=== PATIENT | male | born 1945 | race Caucasian/White ===

== ENCOUNTER → 2019-01-19 | Outpatient (CLI) | payer MEDICARE | END | disposition home or self-care (01) | LOC: LABWHC1 13:01 | PROVIDERS: ATTEND Internal Medicine | DX: M25.50 Pain in unspecified joint (principal) | CPT/HCPCS: 36415; 85652; 86140 ==

== ENCOUNTER → 2020-09-11 | Outpatient (CLI) | payer MEDICARE | END | disposition home or self-care (01) | LOC: LABWHC1 12:12 | PROVIDERS: ATTEND Internal Medicine | DX: Z20.822 Contact with and (suspected) exposure to COVID-19 (principal) | CPT/HCPCS: 36415; 86769 ==

== ENCOUNTER → 2024-03-08 | Outpatient (CLI) | payer MEDICARE ==
--- NOTE | 2024-03-08 10:42 | CA ---
Exercise Stress Test Report Name: Ralph Kirkpatrick Exam Date: 03/08/2024 09:34 Exam Location: [place] Stress Ht (in): 71 Wt (lb): 200 BSA: 2.11 Ordering Phys: Wayne Linda DO Referring Phys: Alexei Technologist: Martin Amador Age: 79 Gender: M : 1945 Procedure CPT: Indications: R94.31 ABNORMAL EKG ICD-10 Codes: Patient History: pre op Medications: NONE Meds past 24 hrs: Pretest Chest Pain: STRESS TEST Fer Protocol Exercise Duration (min:sec): 06:[address] Depressions (mm): Angina Score: Krueger Score: Resting HR (bpm): 64 Peak HR (bpm): 129 Resting BP (mmHg): 139 / 83 Peak BP (mmHg): 194 / 78 MPHR: 140 Target HR: 119 % MPHR: 92 METS: 8.0 Total Dose: Peak Dose: Atropine: Double Product: 91558 BP Response: Stress Termination: Reached target heart rate Stress Symptoms: No chest pain or symptoms Stress Summary: ECG ANALYSIS Resting ECG: Normal sinus rhythm normal axis normal intervals Stress ECG: Patient exercised on Fer protocol for 6 and half minutes achieving 92% of predicted maximal heart rate without chest pain or diagnostic ST segment depression CONCLUSIONS Average exercise tolerance Negative stress test by EKG criteria Cardiolite portion of the stress test will be reported separately Dr. Israel Cantor MD (Electronically Signed) Final Date: 08 March 2024 10:41
--- NOTE | 2024-03-08 11:14 | NM ---
EXAMINATION TYPE: NM stress lexiscan cardiolite DATE OF EXAM: 03/08/2024 COMPARISON: NONE CLINICAL INDICATION: Male, 79 years old with history of R94.31 abnormal EKG; TECHNIQUE: After the intravenous administration of 10 mCi Tc 99m Sestamibi - Cardiolite resting SPEC T images acquired 65 minutes post injection. The patient received 0.4mg Lexiscan, 26 mCi Tc 99m Sestamibi - Stress images obtained 15 minutes post injection FINDINGS: Review of stress and rest SPECT images demonstrates no distinct perfusion abnormality. Gated analysi s shows normal wall motion with an estimated left ventricular ejection fraction of 59 %. IMPRESSION: No scintigraphic evidence for reversible ischemia. [facility], , 03/08/2024 11:12 AM
--- NOTE | 2024-03-09 10:40 | CA ---
Transthoracic Echo Report Name: Ralph Kirkpatrick Age: 79 Gender: M : 1945 Exam Date: 03/08/2024 08:36 Exam Location: [place] Echo Ht (in): 71 Wt (lb): 200 Ordering Physician: Wayne Linda DO Attending/Referring Phys: Supplier Manager Heather Lam RDCS Procedure CPT: Indications: R94.31 ABNORMAL EKG Cardiac Hx: Technical Quality: Fair Contrast 1: Total Dose (mL): Contrast 2: Total Dose (mL): MEASUREMENTS (Male / Female) Normal Values 2D ECHO LV Diastolic Diameter PLAX 1.3 cm 4.2 - 5.9 / 3.9 - 5.3 cm LV Systolic Diameter PLAX 3.0 cm IVS Diastolic Thickness 1.3 cm 0.6 - 1.0 / 0.6 - 0.9 cm LVPW Diastolic Thickness 4.5 cm 0.6 - 1.0 / 0.6 - 0.9 cm LV Relative Wall Thickness 4.5 RV Internal Dim ED PLAX 3.9 cm LVOT Diameter 1.8 cm LA Volume 81.3 cm??? 18 - 58 / 22 - 52 cm??? LA Volume Index 37.8 cm???/m??? 16 - 28 cm???/m??? M-MODE Aortic Root Diameter MM 3.4 cm LA Systolic Diameter MM 4.5 cm LA Ao Ratio MM 1.4 AV Cusp Separation MM 1.0 cm DOPPLER AV Peak Velocity 227.4 cm/s AV Peak Gradient 20.7 mmHg AV Mean Velocity 163.4 cm/s AV Mean Gradient 11.5 mmHg AV Velocity Time Integral 54.3 cm AI Peak Velocity 443.1 cm/s AI Peak Gradient 78.5 mmHg AI Pressure Half Time 928.5 ms LVOT Peak Velocity 112.9 cm/s LVOT Peak Gradient 5.1 mmHg LVOT Velocity Time Integral 24.0 cm LVOT Stroke Volume 58.4 cm??? LVOT Stroke Volume Index 27.7 ml/m??? LVOT Cardiac Index 1549.3 cm???/min???m??? AV Area Cont Eq vti 1.1 cm??? AV Area Cont Eq pk 1.2 cm??? MV Area PHT 3.9 cm??? Mitral E Point Velocity 72.0 cm/s Mitral A Point Velocity 93.6 cm/s Mitral E to A Ratio 0.8 MV Deceleration Time 194.0 ms TR Peak Velocity 231.7 cm/s TR Peak Gradient 21.5 mmHg Right Ventricular Systolic Press 26.0 mmHg FINDINGS Left Ventricle Mildly increased left ventricular wall thickness. Left ventricular cavity size normal. Normal left ventricular systolic function with no obvious regional wall motion abnormalities. Left ventricular ejection fraction is estimated at 55-60 %. Grade 1 diastolic dysfunction. Right Ventricle Mild right ventricular dilatation. Right ventricular systolic pressure within normal limits. Right Atrium Normal right atrial size. Left Atrium Moderately increased left atrial volume. Mildly increased left atrial area. Mitral Valve Structurally normal mitral valve. Mitral valve thickened. Mild mitral annular calcification. [id number] mitral regurgitation. Mild mitral annular calcification. Aortic Valve Mild aortic stenosis with a peak gradient of 21 mmHg and a mean gradient of 12 mmHg. Mild aortic regurgitation. Tricuspid Valve Structurally normal tricuspid valve. Mild tricuspid regurgitation. Pulmonic Valve Structurally normal pulmonic valve. Trace pulmonic regurgitation. Pericardium No pericardial effusion. Aorta Normal size aortic root and proximal ascending aorta. CONCLUSIONS Normal LV function Mild to moderate mitral regurgitation Mild aortic stenosis Previewed by: Dr. Israel Cantor MD (Electronically Signed) Final Date: 09 March 2024 10:39
== END | disposition home or self-care (01) ==
LOC: RADNMMAIN 07:48
PROVIDERS: ATTEND Family Medicine
DX: R94.31 Abnormal electrocardiogram [ECG] [EKG]
CPT/HCPCS: 78452; 93017; 93306

== ENCOUNTER → 2025-01-04 | Outpatient (CLI) | payer MEDICARE ==
--- NOTE | 2025-01-04 09:45 | XR ---
EXAMINATION TYPE: XR knee complete RT DATE OF EXAM: 01/04/2025 COMPARISON: NONE CLINICAL INDICATION: Male, 79 years old with history of M25.561 RIGHT KNEE PAIN; TECHNIQUE: Three views are submitted. FINDINGS: Moderate patellofemoral medial compartment joint space narrowing with chondrocalcinosis. Mild general ized demineralization. Enthesophytes along the anterior margin of patella. Trace amount of fluid in t he suprapatellar bursa. Faint vascular calcifications. Osseous structures are intact. No acute frac ture seen. IMPRESSION: 1. 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 [facility], , 01/04/2025 9:43 AM
== END | disposition home or self-care (01) ==
LOC: RADXRMAIN 09:29
PROVIDERS: ATTEND Family Medicine
DX: M17.11 Unilateral primary osteoarthritis, right knee (principal)